=== PATIENT | male | born 1970 | race Caucasian/White ===

== ENCOUNTER 2023-10-01 08:49 | Outpatient (CLI) | payer OTHER, SELFPAY ==
--- NOTE | 2023-10-01 09:06 | NMCV_ITS ---
NM card bld pool r or s*[id number] AUSTYN SONG Age: 52 Gender: M : 1970 Exam Date: 10/01/2023 10:08 Ordering Phys: John Penaloza MD Technologist: CATIE Rivas Exam Location: [facility] Indications: ATHEROSCLEROTIC HEART DISEASE OF [place] CORONARY ARTERY WITHOUT ANGINA PECTORIS Camera Used: [employer] [employer] Protocol: three view gated blood pool study Technical Image Quality: Good Dose: Admin Site: Administered By: [id number] Tagged RBCs: 23.6 IV - Right CATIE Rivas Antecubital PYP: EJECTION FRACTION: Automatic LV EF: 50 Rest RV EF: Manual LV EF: FINDINGS CONCLUSIONS LV systolic function is mildly reduced with EF of 48%. Chencho Arora MD (Electronically Signed) Final Date: 02 October 2023 14:45 S
== END 2023-10-01 08:50 | disposition home or self-care (01) ==
LOC: RAD 08:52
PROVIDERS: Visit Provider Internal Medicine Interventional Cardiology
DX: I25.10 Atherosclerotic heart disease of native coronary artery without angina pectoris (principal)
CPT/HCPCS: 78472; A9560